=== PATIENT | female | born 1955 | race Caucasian/White ===

== ENCOUNTER 2018-11-28 17:38 | Emergency (ER) | payer OTHER ==
[~2018-11-28] VITALS: Ht 152.4 cm; Wt 77.1 kg
[~2018-11-28 17:38] MED LIST: NORCO 5-325 TA1 EACH PO
[2018-11-28] MEDS ORDERED: OCUVITE EYE +1 EACH PO (17:51)
[2018-11-28] MEDS ORDERED: OMEPRAZOLE40 MG PO (17:51)
[2018-11-28] MEDS ORDERED: PROZAC20 MG PO (17:51)
[2018-11-28] MEDS ORDERED: TYLENOL EXTRA500 MG PO (17:52)
[2018-11-28] MEDS ORDERED: LISINOPRIL-HCT1 EAC2 PO (17:52)
[2018-11-28] MEDS ORDERED: LOVASTATIN 20 M20 MG PO (17:52)
[2018-11-28] MEDS ORDERED: METHOCARBAMOL500 M2 PO (17:53)
[2018-11-28] MEDS ORDERED: TRAMADOL 50 MG50 MG PO (17:53)
[2018-11-28] MEDS ORDERED: CALCIUM 600 +1 EA11 PO (17:53)
[2018-11-28] MEDS ORDERED: ESTRACE0.5 MG PO (17:53)
[2018-11-28] MEDS ORDERED: FISH OIL 1,001000 M2 PO (17:53)
[2018-11-28] MEDS ORDERED: VITAMIN B12-FO1 EAC1 PO (17:54)
[2018-11-28 18:56] VITALS: BP 147/58
== END 2018-11-28 18:56 | disposition home or self-care (01) ==
LOC: M.ERS 17:38
DX: S61.411A Laceration without foreign body of right hand, initial encounter (principal); E78.00 Pure hypercholesterolemia, unspecified; I10 Essential (primary) hypertension; Z90.710 Acquired absence of both cervix and uterus; W01.0XXA Fall on same level from slipping, tripping and stumbling without subsequent striking against object, initial encounter; Y93.89 Activity, other specified; Y92.89 Other specified places as the place of occurrence of the external cause; Y99.8 Other external cause status